=== PATIENT | male | born 1985 | race Caucasian/White ===

== ENCOUNTER 2017-09-07 19:23 | Emergency (ER) | payer OTHER ==
[2017-09-07] MEDS ORDERED: Albuterol/Ipratropium 3.0-0.5 MG/3 ML Neb Soln NEB ONE (19:55)
--- NOTE | 2017-09-07 20:10 | EDM.PDOC ---
ED HPI GENERAL MEDICAL PROBLEM - General Stated Complaint: UNK Time Seen by Provider: 09/07/17 20:00 Source of Information: Reports: Patient History Limitations: Reports: No Limitations - History of Present Illness INITIAL COMMENTS - FREE TEXT/NARRATIVE: History of present illness: [32-year-old male comes in complaining of cough and cough related rib pain. Patient says it's gotten to where it hurts to breathe patient indicates he has had fevers off and on and significant amount of nasal discharge.] Review of systems: As per history of present illness and below otherwise all systems reviewed and negative. Past medical history: As per history of present illness and as reviewed below otherwise noncontributory. Surgical history: As per history of present illness and as reviewed below otherwise noncontributory. Social history: No reported history of drug or alcohol abuse. Family history: As per history of present illness and as reviewed below otherwise noncontributory. Physical exam: HEENT: Atraumatic, normocephalic, pupils reactive, negative for conjunctival pallor or scleral icterus, mucous membranes moist, oropharyngeal erythema without white patchy exudate, neck supple, nontender, trachea midline. Lungs: Diminished lung sounds throughout patient noted to be breathing very shallowly, chest nontender. Heart: S1S2, regular, negative for clicks, rubs, or JVD. Abdomen: Soft, nondistended, nontender. Negative for masses or hepatosplenomegaly. Negative for costovertebral tenderness. Pelvis: Stable nontender. Genitourinary: Deferred. Rectal: Deferred. Extremities: Atraumatic, negative for cords or calf pain. Neurovascular unremarkable. Neuro: Awake, alert, oriented. Cranial nerves II through XII unremarkable. Cerebellum unremarkable. Motor and sensory unremarkable throughout. Exam nonfocal. Diagnostics: [Influenza A B, chest x-ray] Therapeutics: [DuoNeb] Impression: [#1 pharyngitis #2 cough] Plan: [Antibiotics, inhaler, steroid, cough syrup] Definitive disposition and diagnosis as appropriate pending reevaluation and review of above. Generalized Pain Score (Numeric/FACES): 10 - Related Data Allergies Allergy/AdvReac Type Severity Reaction Status Date / Time Sulfa (Sulfonamide Allergy Unknown unknown Verified 09/07/17 19:59 Antibiotics) Home Meds: Home Meds Albuterol Sulfate [Proair Hfa] 2 puff IH Q6HR #1 hfa.aer.ad 09/07/17 [Rx] Amoxicillin [IMW: Amoxicillin] 500 mg PO .THREE TIMES DAILY #30 cap 09/07/17 [Rx ] Inhaler, Assist Devices [Space Chamber Plus] 1 each ASDIRECTED #1 spacer [Rx] methylPREDNISolone [Medrol] 4 mg PO DAILY #21 tab.ds.pk 09/07/17 [Rx] ED ROS GENERAL - Review of Systems Review Of Systems: See Below (History of present illness) ED EXAM, GENERAL - Physical Exam Exam: See Below (History of present illness) Course - Vital Signs Last Recorded V/S: Last Vital Signs Temp 102.5 C H 09/07/17 20:00 Pulse 108 H 09/07/17 20:00 Resp 18 09/07/17 20:00 BP 148/98 H 09/07/17 20:00 Pulse Ox 98 09/07/17 20:00 - Orders/Labs/Meds Orders: Active Orders 24 hr Category Date Time Status RT Aerosol Therapy [RC] ASDIRECTED Care 09/07/17 19:56 Active CXR [Chest 2V] [CR] Stat Exams 09/07/17 19:56 Taken CULTURE STREP A CONFIRMATION [] Stat Lab 09/07/17 20:55 Results STREP SCRN A RAPID W CULT CONF [RM] Stat Lab 09/07/17 20:55 Results Orphenadrine [Norflex] Med 09/07/17 20:30 Active 60 mg IM Q12H Medication Orders Orphenadrine Citrate (Norflex) 60 mg IM Q12H HUBERT Last Admin: 09/07/17 20:52 Dose: 60 mg Meds: Medications Generic Name Dose Route Start Last Admin Trade Name Freq PRN Reason Stop Dose Admin Orphenadrine Citrate 60 mg 09/07/17 20:30 09/07/17 20:52 Norflex IM 60 mg Q12H HUBERT Administration Discontinued Medications Generic Name Dose Route Start Last Admin Trade Name Freq PRN Reason Stop Dose Admin Albuterol/Ipratropium 3 ml 09/07/17 19:55 09/07/17 20:22 Duoneb 3.0-0.5 Mg/3 Ml NEB 09/07/17 19:56 3 ml ONETIME ONE Administration Ketorolac Tromethamine 60 mg 09/07/17 20:16 09/07/17 20:51 Toradol IM 09/07/17 20:17 Not Given ONETIME ONE Departure - Departure Time of Disposition: 21:27 Disposition: Home, Self-Care 01 Condition: Good Clinical Impression: Cough, Pharyngitis, Costochondritis, acute - Discharge Information Prescriptions: Albuterol Sulfate [Proair Hfa] 2 puff IH Q6HR #1 hfa.aer.ad Amoxicillin [IMW: Amoxicillin] 500 mg PO .THREE TIMES DAILY #30 cap Inhaler, Assist Devices [Space Chamber Plus] 1 each MC ASDIRECTED #1 spacer methylPREDNISolone [Medrol] 4 mg PO DAILY #21 tab.ds.pk Instructions: Upper Respiratory Infection, Adult, [id number], Acute Bronchitis, [id number] Referrals: PCP,None [Primary Care Provider] - Additional Instructions: The following information is given to patients seen in the emergency department who are being discharged to home. This information is to outline your options for follow-up care. We provide all patients seen in our emergency department with a follow-up referral. The need for follow-up, as well as the timing and circumstances, are variable depending upon the specifics of your emergency department visit. If you don't have a primary care physician on staff, we will provide you with a referral. We always advise you to contact your personal physician following an emergency department visit to inform them of the circumstance of the visit and for follow-up with them and/or the need for any referrals to a consulting specialist. The emergency department will also refer you to a specialist when appropriate. This referral assures that you have the opportunity for follow-up care with a specialist. All of these measure are taken in an effort to provide you with optimal care, which includes your follow-up. Under all circumstances we always encourage you to contact your private physician who remains a resource for coordinating your care. When calling for follow-up care, please make the office aware that this follow-up is from your recent emergency room visit. If for any reason you are refused follow-up, please contact the [facility] Emergency Department at and asked to speak to the emergency department charge nurse. Medication as directed Follow-up with PCP in 3-5 days Return to ED as needed as discussed - My Orders Last 24 Hours: My Active Orders 09/07/17 19:56 RT Aerosol Therapy [RC] ASDIRECTED CXR [Chest 2V] [CR] Stat 09/07/17 20:30 Orphenadrine [Norflex] 60 mg IM Q12H 09/07/17 20:55 CULTURE STREP A CONFIRMATION [RM] Stat STREP SCRN A RAPID W CULT CONF [RM] Stat - Assessment/Plan Last 24 Hours: My Active Orders 09/07/17 19:56 RT Aerosol Therapy [RC] ASDIRECTED CXR [Chest 2V] [CR] Stat 09/07/17 20:30 Orphenadrine [Norflex] 60 mg IM Q12H 09/07/17 20:55 CULTURE STREP A CONFIRMATION [RM] Stat STREP SCRN A RAPID W CULT CONF [RM] Stat
[2017-09-07] MEDS: Ketorolac 60 MG/2 ML SDV IM ONE ×2 (20:50→20:51)
--- NOTE | 2017-09-10 18:48 | CR ---
EXAM DATE: 09/07/17 PATIENT'S AGE: 32 Patient: AMANDA ARELLANO Facility: [place], [place] Site . Site : [id number] Study: XRay Chest [id number] 8:43:16 PM Ordering Physician: Doctor Higgins Final Report: INDICATION: Cough. Pain. Fever. Technique: PA and lateral chest x-ray. Findings: Heart size normal. Lungs clear without infiltrate or consolidation. Mild anterior wedging of a few thoracic vertebral bodies. Probable old right rib fractures. Chest otherwise negative without acute disease. Dictated by rGay Mock MD @ Sep 07 2017 8:59PM (Electronic Signature) Report Signed by Proxy. [email or web address]
== END 2017-09-07 21:46 | disposition home or self-care (01) ==
LOC: MW.ED 19:23
DX: M94.0 Chondrocostal junction syndrome [Tietze] (principal); J02.9 Acute pharyngitis, unspecified; Z88.2 Allergy status to sulfonamides; Z79.899 Other long term (current) drug therapy
CPT/HCPCS: 71020; 87081; 87804; 87880; 94640; 96372; 99284; J1885; J2360; 99283